=== PATIENT | female | born 2000 | race Asian ===

== ENCOUNTER 2024-04-13 15:30 | Inpatient (IN) | payer OTHER, SELFPAY ==
--- NOTE | ~2024-04-13 | XR_ITS ---
EXAMINATION: XR CHEST CLINICAL INFORMATION: elevated WBC r/o pneumonia COMPARISON: None available. TECHNIQUE: 2 views of the chest were obtained. FINDINGS: The lungs are clear. The cardiomediastinal silhouette is normal in size. There is no pleural effusion or pneumothorax. No acute osseous abnormality. XR/XR chest 2V IMPRESSION: No acute cardiopulmonary findings. Electronically signed by: Alexandru Livingston MD 04/13/2024 08:59 PM [facility]
--- NOTE | ~2024-04-13 | US_ITS ---
EXAMINATION: US PELVIS CLINICAL INFORMATION: Right lower quadrant pain. 4 cm left adnexal cyst noted on CT abdomen pelvis 04/13/2024. COMPARISON: CT abdomen pelvis 04/13/2024 TECHNIQUE: Transabdominal grayscale, color and spectral Doppler ultrasonography. FINDINGS: Uterus: The uterus measures 7.2 cm x 3.4 cm x 5.6 cm and is anteverted. The endometrial echo complex measures approximately 10 mm in width. No endometrial cavity fluid collections or myometrial lesions noted. The right ovary measures 4.4 cm x 2.19 x 2.8 cm and contains a single 2.0 cm rounded anechoic benign-appearing simple cyst. A normal low resistive mixed arterial and venous spectral wave form is noted within the right ovary. The right ovary is demonstrates normal color sonographic appearance. The left ovary measures 5.6 cm x 4.5 cm x 4.7 cm. A ovoid anechoic focus measuring 4.0 cm x 3.3 cm x 4.2 cm is present in the left ovary. Left ovary demonstrates normal color Doppler interrogation. A normal low resistive venous waveform is noted on spectral interrogation of the left ovary. Trace anechoic free intraperitoneal fluid is present in the pelvic cul-de-sac. US/US pelvic complete IMPRESSION: *Single 4.0 cm x 3.3 cm x 4.2 cm ovoid unilocular cyst within the left ovary. Findings are overwhelmingly likely to represent a benign functional cyst. No followup imaging recommended. The left ovary is otherwise normal in appearance. The left ovary demonstrates a normal low resistive venous waveform. No evidence of left ovarian torsion. *Normal appearance of the uterus and right ovary. Electronically signed by: French Saini MD 04/14/2024 03:20 AM [facility]
--- NOTE | ~2024-04-13 | CT_ITS ---
EXAMINATION: CT ABDOMEN AND PELVIS WITH CONTRAST CLINICAL INFORMATION: Right lower quadrant pain COMPARISON: None available. TECHNIQUE: Multidetector volumetric images were obtained from the superior aspect of the liver through the pubic symphysis following administration 85 mL of Omnipaque 350 intravenous contrast. Sagittal and coronal reformatted images were obtained on the technologist's workstation. Oral contrast: No This CT examination was performed using dose optimization techniques as appropriate, variously including the following: *Automated exposure control *Adjustment of mA and/or kV according to patient size (this includes techniques or standardized protocols for targeted exams where dose is matched to indication/reason for exam; i.e. extremities or head) *Use of iterative reconstruction technique DLP: 509 mGy-cm FINDINGS: LUNG BASES: The visualized lung bases are unremarkable. LIVER, GALLBLADDER, AND BILIARY TREE: 1.1 cm hypodense lesion posterior right lobe of liver, segment 7. This has benign features of sharp margination. Density measurement 57 Hounsfield units. No intrahepatic duct dilatation. The gallbladder is unremarkable with no evidence of radiopaque gallstones, gallbladder wall thickening, or obvious pericholecystic inflammatory changes. PANCREAS: Unremarkable. SPLEEN: Unremarkable. ADRENAL GLANDS: Unremarkable. KIDNEYS AND URETERS: The kidneys are normal in size, shape, and attenuation. No hydronephrosis, hydroureter, or calculi seen. No perinephric stranding. BLADDER: Unremarkable. GASTROINTESTINAL TRACT: The small and large bowel are unremarkable. The appendix is nonvisualized. Subtle stranding and trace fluid in the right lower quadrant mesentery adjacent to the cecum. Appendicitis cannot be excluded. There is no abscess. ABDOMINAL WALL: No significant hernia is appreciated. LYMPH NODES: Normal. VASCULAR: Unremarkable. PELVIC VISCERA: Uterus is anteverted. Left adnexal cystic lesion measuring 4 cm. Findings are overwhelmingly likely to represent a benign functional cyst. No followup imaging recommended. Right adnexal follicle measuring 1.6 cm. OSSEOUS STRUCTURES: No acute osseous abnormality. CT/CT abdomen pelvis w IV con IMPRESSION: 1. The appendix is nonvisualized. Subtle stranding and trace fluid in the right lower quadrant mesentery adjacent to the cecum. Appendicitis cannot be excluded. There is no abscess. 2. 1.1 cm hypodense lesion posterior right lobe of liver, segment 7. In a patient of this age without history of malignancy no further follow-up imaging would be recommended. 3. Left adnexal cystic lesion measuring 4 cm. Findings are overwhelmingly likely to represent a benign functional cyst. No followup imaging recommended. Fleischner guidelines were followed. Electronically signed by: Skyler Vallejo MD 04/13/2024 10:46 PM [facility]
[2024-04-13 16:41] VITALS: BP 137/91; PULSE 118; RESP 20; TEMP 36.7; O2SAT 100; BMI 27.5
--- NOTE | 2024-04-13 16:42 | ED.GENADULT ---
HPI - General Adult General Chief complaint: Dizziness Stated complaint: passed out at school/lower abd pain Time Seen by Provider: 04/13/24 20:43 Source: patient Mode of arrival: ambulatory Limitations: no limitations History of Present Illness ED Provider: ortega GARCIA narrative: Patient has was healthy had lower abdominal cramps when she went to the bathroom earlier today came back was sitting in the class when had more pain and she passed out during the day patient has continued to have lower abdominal pain vomited once feels hungry but pain is more localized in suprapubic and right lower abdomen gets worse on ambulation on arrival here patient WBC count was 20,000 no history of ovarian cyst in the past Related Data Allergies Allergy/AdvReac Type Severity Reaction Status Date / Time No Known Allergies Allergy Verified 04/13/24 16:45 Review of Systems Review of Systems: Yes all other systems are reviewed and are negative [facility] Social History Social History Advance Directives: No Advance Directives Information Provided: No Physical Exam ED Vital Signs: Vital Signs - 24 hr 04/13/24 16:41 04/13/24 19:59 04/14/24 00:00 Temperature 98.1 F 99.0 F 98.3 F Pulse Rate 118 H 101 H 83 Respiratory Rate 20 22 H 18 Blood Pressure 137/91 H 125/75 105/54 L Pulse Oximetry 100 97 97 Oxygen Delivery Method Room Air Room Air Room Air 04/14/24 00:43 Temperature Pulse Rate 97 Respiratory Rate 18 Blood Pressure 113/70 Pulse Oximetry 97 Oxygen Delivery Method BMI result Body Mass Index 27.5 Appearance: Alert. Oriented X3. No acute distress. Eyes: No pallor or icterus ENT: Pharynx normal. Oral Mucosa moist Neck: Normal inspection. Neck supple. CVS: Normal heart rate and rhythm. Pulses normal. Respiratory: No respiratory distress. Equal air entry bilateral, no wheezing/rales/rhonchi Abdomen: Soft and tenderness in right lower quadrant with guarding no rebound tenderness. Bowel sounds are present, no mass palpable, no CVA tenderness Skin: Skin warm and dry. Normal skin color. Normal skin turgor. Extremities: No lower extremity edema. No calf tenderness Neuro: Oriented X 3. Course Course Course Narrative: This is an RME: Additional HPI, ROS, PE not included below will be deferred to primary provider. RME assessment and note performed by: Yolanda Galarza PA-C This is [id number] who presents to the emergency department with complaints of suprapubic pain and two syncopal episodes. Pt reports that she voided while at school, and went back to class. Upon going back to class she had a syncopal episode. She went to school health services and had an EKG. She went hope and felt faint again. Patient reports that she has had suprapubic abdominal pain. She reports that she is not sexually active and denies chance of . No urinary symptoms. She is not on OCPs Plan: Labs, EKG, UA further ER eval needed. Medications Administered Generic Name Dose Route Start Last Admin Trade Name Freq PRN Reason Stop Dose Admin Lactated Ringer's 1,000 mls @ 100 mls/hr 04/14/24 01:15 04/14/24 01:26 Lr IVCONT 100 mls/hr .Q10H DANYA Administration Discontinued Medications Generic Name Dose Route Start Last Admin Trade Name Freq PRN Reason Stop Dose Admin Sodium Chloride 1,000 mls @ 999 mls/hr 04/13/24 20:57 04/13/24 23:16 Ns IV 04/13/24 21:57 Infused .Q1H1M ONE Infusion Piperacillin Sod/Tazobactam 50 mls @ 100 mls/hr 04/13/24 23:15 04/13/24 23:57 Sod 3.375 gm/ Sodium Chloride IV 04/13/24 23:44 Infused ONCE ONE Infusion Iohexol 85 ml 04/13/24 22:02 04/13/24 22:02 Iohexol 350 Mg/Ml 100 Ml Infus..Btl IV 04/13/24 22:03 85 ml ONCE ONE Administration Medical Decision Making Medical Decision Making [facility] Narrative: Patient has acute onset of lower abdominal pain near-syncope episode likely vasovagal CT scan could not see the appendix but has some inflammation of the right lower quadrant will admit patient to surgery for possible appendicitis Dr. Vela will see and admit the patient Differential Diagnosis Differential Diagnoses: The differential diagnosis associated with the presentation includes Appendicitis/ovarian cyst/hemorrhagic ovarian cyst Admission/Observation Consideration of admission/observation: Escalation of care including admission/observation considered Lab Data [facility] Lab Attestation statement: I reviewed the patient's lab results. 04/13/24 17:27 04/13/24 17:27 Labs: Lab Results 04/13/24 04/13/24 04/13/24 Range/Units 17:27 17:40 19:44 WBC 20.1 H (4.8-10.8) X10*3/uL RBC 5.05 (4.20-5.50) X10*6/uL Hgb 10.3 L (12.0-16.0) g/dl Hct 34.0 L (37.0-47.0) % MCV 67.3 L (80.0-98.0) fL MCH 20.4 L (27.0-33.0) pg MCHC 30.3 L (31.0-35.0) g/dl RDW 16.7 H (11.0-16.0) % Plt Count 433 H (160-400) X10*3/uL MPV 10.2 (9.4-12.3) fL Immature Gran % (Auto) 0.5 H (0.0-0.4) % Neut % (Auto) 74.8 H (45-73) % Lymph % (Auto) 18.0 L (20-40) % Henry % (Auto) 5.1 (2-11) % Eos % (Auto) 1.3 (0-4) % Baso % (Auto) 0.3 (0-2) % Lymph # (Auto) 3.6 (1.2-4.9) X10*3/uL Henry # (Auto) 1.0 (0.1-1.2) X10*3/uL Eos # (Auto) 0.3 (0.0-0.4) X10*3/uL Baso # (Auto) 0.1 (0.0-0.2) X10*3/uL Abs Immat Gran (auto) 0.10 H (0.00-0.03) X10*3/uL Absolute Neuts (auto) 15.0 H (2.0-8.3) x10*3/uL Absolute Nucleated RBC 0.000 (0.0-0.012) X10*3/uL Nucleated RBC % (auto) 0.0 (0.0-0.2) /100WBC PT 14.3 H (10.9-12.4) SEC INR 1.2 H (0.9-1.1) Sodium 138 (135-145) mmol/L Potassium 3.6 (3.3-5.1) mmol/L Chloride 104 (96-108) mmol/L Carbon Dioxide 22 (22-29) mmol/L Anion Gap 16 (12-20) BUN 10 (9-16) mg/dL Creatinine 0.68 (0.5-1.4) mg/dL Estim Creat Clear Calc 127.8 Estimated GFR > 60 Random Glucose 91 (60-115) mg/dL Lactic Acid 0.9 (0.5-2.0) mmol/L Calcium 9.0 (8.4-10.2) mg/dL Magnesium 2.0 (1.6-2.6) mg/dL Total Bilirubin 0.6 (0.0-1.0) mg/dL Direct Bilirubin 0.2 (0.0-0.5) mg/dL AST 25 (5-31) U/L ALT 17 (0-31) U/L Alkaline Phosphatase 92 (39-117) U/L Troponin I High Sens < 2.7 (<3.5-17.0) ng/L Total Protein 8.2 H (6.5-8.0) g/dL Albumin 4.3 (3.5-5.0) g/dL Lipase 21 (8-78) U/L Beta HCG, Quant < 2 mIU/mL Urine Color Yellow Urine Appearance Clear Urine pH 6.5 (5.0-9.0) Ur Specific Burns 1.020 (1.005-1.025) Urine Protein Negative (Neg-Trace) mg/dL Urine Glucose (UA) Negative (Negative) mg/dL Urine Ketones 15 (Negative) mg/dL Urine Blood Negative (Negative) Urine Nitrite Negative (Negative) Ur Leukocyte Esterase Negative (Negative) Influenza Type A (PCR) NEGATIVE (Negative) Influenza Type B (PCR) NEGATIVE (Negative) RSV RNA Qual (PCR) NEGATIVE (Negative) SARS-CoV-2 RNA (RT-PCR) NEGATIVE (Negative) Independent Interpretation I performed an independent interpretation of an: EKG and CT Scan Interpretation: Sinus tachycardia ventricular rate 107 beats per minute normal interval normal axis no acute STT wave changes no acute ischemia Radiology Impression Discussion of test interpretation with radiology: I have reviewed the radiologist's reading. Radiologist Impression: [id number] [place] [address] CT Scan Report Signed Patient: Hermila Anne MR#: [id number] : 2000 Acct:[id number] Age/Sex: 23 / F ADM Date: 04/13/24 Loc: HO.ED Attending Dr: Ordering Physician: Luis Jacobo MD Date of Service: 04/13/24 Procedure(s): CT abdomen pelvis w IV con Accession Number(s): [id number] cc: Physician,None ; Luis Jacobo MD~ EXAMINATION: CT ABDOMEN AND PELVIS WITH CONTRAST CLINICAL INFORMATION: Right lower quadrant pain COMPARISON: None available. TECHNIQUE: Multidetector volumetric images were obtained from the superior aspect of the liver through the pubic symphysis following administration 85 mL of Omnipaque 350 intravenous contrast. Sagittal and coronal reformatted images were obtained on the technologist's workstation. Oral contrast: No This CT examination was performed using dose optimization techniques as appropriate, variously including the following: *Automated exposure control *Adjustment of mA and/or kV according to patient size (this includes techniques or standardized protocols for targeted exams where dose is matched to indication/reason for exam; i.e. extremities or head) *Use of iterative reconstruction technique DLP: 509 mGy-cm FINDINGS: LUNG BASES: The visualized lung bases are unremarkable. LIVER, GALLBLADDER, AND BILIARY TREE: 1.1 cm hypodense lesion posterior right lobe of liver, segment 7. This has benign features of sharp margination. Density measurement 57 Hounsfield units. No intrahepatic duct dilatation. The gallbladder is unremarkable with no evidence of radiopaque gallstones, gallbladder wall thickening, or obvious pericholecystic inflammatory changes. PANCREAS: Unremarkable. SPLEEN: Unremarkable. ADRENAL GLANDS: Unremarkable. KIDNEYS AND URETERS: The kidneys are normal in size, shape, and attenuation. No hydronephrosis, hydroureter, or calculi seen. No perinephric stranding. BLADDER: Unremarkable. GASTROINTESTINAL TRACT: The small and large bowel are unremarkable. The appendix is nonvisualized. Subtle stranding and trace fluid in the right lower quadrant mesentery adjacent to the cecum. Appendicitis cannot be excluded. There is no abscess. ABDOMINAL WALL: No significant hernia is appreciated. LYMPH NODES: Normal. VASCULAR: Unremarkable. PELVIC VISCERA: Uterus is anteverted. Left adnexal cystic lesion measuring 4 cm. Findings are overwhelmingly likely to represent a benign functional cyst. No followup imaging recommended. Right adnexal follicle measuring 1.6 cm. OSSEOUS STRUCTURES: No acute osseous abnormality. CT/CT abdomen pelvis w IV con IMPRESSION: 1. The appendix is nonvisualized. Subtle stranding and trace fluid in the right lower quadrant mesentery adjacent to the cecum. Appendicitis cannot be excluded. There is no abscess. 2. 1.1 cm hypodense lesion posterior right lobe of liver, segment 7. In a patient of this age without history of malignancy no further follow-up imaging would be recommended. 3. Left adnexal cystic lesion measuring 4 cm. Findings are overwhelmingly likely to represent a benign functional cyst. No followup imaging recommended. Fleischner guidelines were followed. Electronically signed by: Skyler Vallejo MD 04/13/2024 10:46 PM [facility] Discharge Plan Discharge Clinical Impression: Acute appendicitis, Ovarian cyst, Vasovagal syncopes Patient Disposition: Admitted As Inpatient
--- NOTE | 2024-04-13 16:54 | ECG_ITS ---
Test Reason : syncope Blood Pressure : / mmHG Vent. Rate : 107 BPM Atrial Rate : 107 BPM P-R Int : 122 ms QRS Dur : 078 ms QT Int : 330 ms P-R-T Axes : 069 072 047 degrees QTc Int : 440 ms Sinus tachycardia Otherwise normal ECG No previous ECGs available Referred By: Luis Jacobo Electronically Signed By:TRISTIAN URENA MD
[2024-04-13 17:35] LABS: MANUAL DIFF FLAG NO
[2024-04-13 17:42] LABS: INTERNATIONAL NORM RATIO 1.2 (0.9-1.1); Prothrombin Time 14.3 SEC (10.9-12.4)
[2024-04-13 17:44] LABS: Basophils Absolute Auto 0.1 X10*3/uL (0.0-0.2); Basophils Percent Auto 0.3 % (0-2); Eosinophils Absolute Auto 0.3 X10*3/uL (0.0-0.4); Eosinophils Percent Auto 1.3 % (0-4); Hemoglobin 10.3 g/dl (12.0-16.0); Imm Gran Pct Auto 0.5 % (0.0-0.4); Lymphocytes Absolute Auto 3.6 X10*3/uL (1.2-4.9); Mean Corpuscular HGB Conc 30.3 g/dl (31.0-35.0); Mean Corpuscular Hemoglobin 20.4 pg (27.0-33.0); Mean Corpuscular Volume 67.3 fL (80.0-98.0); Mean Platelet Volume 10.2 fL (9.4-12.3); Monocytes Percent Auto 5.1 % (2-11); Neutrophils Percent Auto 74.8 % (45-73); Platelet Count 433 X10*3/uL (160-400); Red Blood Count 5.05 X10*6/uL (4.20-5.50); Red Cell Distribution Width 16.7 % (11.0-16.0); White Blood Count 20.1 X10*3/uL (4.8-10.8)
[2024-04-13 17:47] LABS: Appearance Urine Clear; Color Urine Yellow; Glucose Urine UA Negative (Negative); Leukocyte Esterase Urine Negative (Negative); Nitrite Urine Negative (Negative); PH 6.5 (5.0-9.0); Urine Blood Negative (Negative); Urine Ketones 15 mg/dL (Negative); Urine Protein Negative (Neg-Trace)
[2024-04-13 17:53] LABS: Alanine Aminotransferase 17 U/L (0-31); Albumin Level 4.3 g/dL (3.5-5.0); Alkaline Phosphatase 92 U/L (39-117); Anion Gap 16 (12-20); Aspartate Amino Transferase 25 U/L (5-31); Bilirubin Direct 0.2 mg/dL (0.0-0.5); Bilirubin Total 0.6 mg/dL (0.0-1.0); Blood Urea Nitrogen 10 mg/dL (9-16); Carbon Dioxide 22 mmol/L (22-29); Chloride 104 mmol/L (96-108); Creatinine Clr Calc Pharmacy 127.8; Estimated Glomerular Filt Rate > 60; Glucose Random 91 mg/dL (60-115); Lipase 21 U/L (8-78); Potassium 3.6 mmol/L (3.3-5.1); Sodium 138 mmol/L (135-145); Total Protein 8.2 g/dL (6.5-8.0)
[2024-04-13 18:00] LABS: Troponin-I High Sensitivity < 2.7 ng/L (<3.5-17.0)
[2024-04-13 18:14] LABS: Influenza A PCR NEGATIVE (Negative); Influenza B PCR NEGATIVE (Negative); Resp Syncy Virus RNA Qual PCR NEGATIVE (Negative); SARS COV2 PCR INHOUSE NEGATIVE (Negative)
[2024-04-13 19:59] VITALS: BP 125/75; PULSE 101; RESP 22; TEMP 37.2; O2SAT 97
[2024-04-13 20:05] LABS: Lactic Acid 0.9 mmol/L (0.5-2.0)
[2024-04-13 20:17] LABS: HCG Quantitative < 2 mIU/mL
--- NOTE | 2024-04-13 20:29 | PC.NURSE ---
a&ox4. vss and up to date aside from being slightly tachycardic on the monitor tech - pt denies any chest pain/palpitations. pt presents to the ED s/p 2 witnessed syncopal episodes. pt verbalizes 1st episode occurred at school at approx. 11am this morning during class. -headstrike. -thinners. pt reports feeling dizzy/lightheaded prior to fall. only complaints is intermittent nonradiating lower abd pain. pt also endorsing dysuria, urinary urgency, frequency. denies any discharge/odor/fever/chills/n/v. 2nd syncopal episode occurred at home ALUMINUM POOL [employer]ST[employer]. 20gIV in the right AC - 2nd set of blood cultures obtained/sent to lab. pt on RA w/o difficulty - no sob/wob noted. respirations even/unlabored. family bedside for support. plan of care ongoing. call de la torre placed within reach.
[2024-04-13] MEDS: 0.9 % Sodium Chloride 1,000 ML 999 ML IV (21:16)
--- NOTE | 2024-04-13 21:16 | PC.NURSE ---
IVF administered per provider order. pt waiting to go to CT at this time.
[2024-04-13] MEDS: iohexoL 350 MG/ML 100 ML INFUS..BTL 85 ML IV (22:02)
[2024-04-13] MEDS: Piperacillin Sodium/Tazobactam 3.375 GM in 0.9 % Sodium Chloride 50 ML IV (23:23)
--- NOTE | 2024-04-13 23:24 | PC.NURSE ---
abx administered per provider order. pt pending admission at this time.
[2024-04-14] VITALS: BP 105/54; PULSE 83; RESP 18; TEMP 36.8; O2SAT 97
[2024-04-14 00:43] VITALS: BP 113/70; PULSE 97; RESP 18; O2SAT 97
--- NOTE | 2024-04-14 00:45 | MHC.EDTECH ---
Patient ambulated to the bathroom with a steady gait,vitals taken,belongings list completed,copy placed in chart,call de la torre in reach
[2024-04-14] MEDS: Lactated Ringers 1,000 ML 100 ML IVCONT (01:26)
--- NOTE | 2024-04-14 02:03 | PC.NURSE ---
pt to ultrasound at this time.
--- NOTE | 2024-04-14 03:01 | PC.NURSE ---
pt seen by hospitalist/aware of plan of care moving forward at this time. LR infusing @ 100 mls/hr into 20gIV in the right AC at this time. respirations remain even/unlabored. pt waiting for bed assignment at this time. plan of care ongoing. call de la torre placed within reach.
[2024-04-14 05:08] LABS: MANUAL DIFF FLAG NO
[2024-04-14 05:10] VITALS: BP 104/56; PULSE 76; RESP 18; O2SAT 97
[2024-04-14 05:10] LABS: Basophils Absolute Auto 0.1 X10*3/uL (0.0-0.2); Basophils Percent Auto 0.3 % (0-2); Eosinophils Absolute Auto 0.4 X10*3/uL (0.0-0.4); Eosinophils Percent Auto 2.3 % (0-4); Hematocrit 29.2 % (37.0-47.0); Hemoglobin 8.9 g/dl (12.0-16.0); Imm Gran Abs Auto 0.05 X10*3/uL (0.00-0.03); Imm Gran Pct Auto 0.3 % (0.0-0.4); Lymphocytes Absolute Auto 3.3 X10*3/uL (1.2-4.9); Lymphocytes Percent Auto 21.1 % (20-40); Mean Corpuscular HGB Conc 30.5 g/dl (31.0-35.0); Mean Corpuscular Hemoglobin 20.5 pg (27.0-33.0); Mean Corpuscular Volume 67.3 fL (80.0-98.0); Mean Platelet Volume 10.1 fL (9.4-12.3); Monocytes Absolute Auto 0.8 X10*3/uL (0.1-1.2); Monocytes Percent Auto 5.4 % (2-11); Neutrophils Percent Auto 70.6 % (45-73); Platelet Count 364 X10*3/uL (160-400); Red Blood Count 4.34 X10*6/uL (4.20-5.50); Red Cell Distribution Width 16.7 % (11.0-16.0); White Blood Count 15.5 X10*3/uL (4.8-10.8)
[2024-04-14 05:24] LABS: Anion Gap 12 (12-20); Blood Urea Nitrogen 9 mg/dL (9-16); Calcium 8.8 mg/dL (8.4-10.2); Carbon Dioxide 20 mmol/L (22-29); Chloride 110 mmol/L (96-108); Creatinine Clr Calc Pharmacy 124.1; Estimated Glomerular Filt Rate > 60; Glucose Random 89 mg/dL (60-115); Potassium 3.9 mmol/L (3.3-5.1); Sodium 138 mmol/L (135-145)
[2024-04-14 05:34] VITALS: BP 106/63; PULSE 82; RESP 18; TEMP 36.8; O2SAT 97
--- NOTE | 2024-04-14 05:50 | HO.PM.IMCN ---
History of Present Illness Data of Consult Service Date: 04/14/24 Requesting physician: Stuart Alexander Primary Care Provider: None Physician HPI Reason for consult: Syncope Hermila Anne is a 23 years old woman with no significant past medical history presents to the emergency department after she had 2 events of LOC followed by loss of consciousness yesterday. She stated that she used the bathroom at school and started to experience pelvic pain after urinating. Upon returning to her classroom and sitting down she felt dizzy and lost consciousness. It seems like she recovered pretty quickly and experienced some ringing to her ears. Denied associated chest pain, shortness on breath or palpitations. She described the pain as a pressure radiating to the right lower quadrant. Intensity has been fluctuating between 4-7/10. She did report nausea and vomiting. She did not report fever, chills or diarrhea. Her last menstrual period was about 3 weeks ago. Denied tobacco smoking, alcohol abuse or illicit drug use. In the ED, she was found to have normal vital signs. Blood workup leukocytosis of 20.1, hemoglobin 10.3 and platelets 433. There are no electrolyte imbalances. Renal function, lipase and LFTs are normal. test is negative. Urinalysis showed no hematuria or finding consistent with UTI. COVID-19, RSV and influenza are negative. CXR showed no acute cardiopulmonary disease. Abdominal pelvis CT scan showed unable to exclude appendicitis without abscesses, liver hypodense lesion and left adnexal cystic lesion. Pelvic ultrasound showed left ovary cyst and no ovarian torsions. ED tx: NS 1 L bolus, Zosyn 3.375 g IV Review of Systems Review of Systems: All 12 systems were reviewed and normal except as noted in HPI. [facility] Social History Patient Tobacco Use Status: Never used Tobacco Smoked in Last 30 Days: No Use of substances other than those prescribed or required for medical reasons: No Advance Directives: No Advance Directives Information Provided: No Nutrition Risks: No Nutritional Risk Patient : No Meds Allergies Allergy/AdvReac Type Severity Reaction Status Date / Time No Known Allergies Allergy Verified 04/13/24 16:45 Active Medications: Current Medications Acetaminophen (Acetaminophen 325 Mg Tablet) 650 mg PO Q6H PRN PRN Reason: Pain, Mild (Pain Scale 1-3), fever or headache Calcium Carbonate (Calcium Carbonate 750 Mg Tab.Chew) 750 mg PO Q4H PRN PRN Reason: Heartburn Lactated Ringer's (Lr) 1,000 mls @ 100 mls/hr IVCONT .Q10H DANYA Last Admin: 04/14/24 01:26 Dose: 100 mls/hr Ketorolac Tromethamine (Ketorolac Tromethamine 15 Mg/Ml Vial) 15 mg IVPUSH Q6H PRN PRN Reason: Pain, Moderate(Pain Scale 4-6) Stop: 04/19/24 01:41 Melatonin (Melatonin 3 Mg Tablet) 6 mg PO BEDTIME PRN PRN Reason: Insomnia Ondansetron HCl (Ondansetron Hcl 4 Mg/2 Ml Vial) 4 mg IVPUSH Q8H PRN PRN Reason: Nausea and Vomiting Sodium Chloride (0.9 % Sodium Chloride Flush 3 Ml Syringe) 3 ml IVFLUSH QSHIFT DANYA Physical Exam Vital Signs and Narrative: Vital Signs: Last Vital Signs Temp 98.3 F 04/14/24 05:34 Pulse 82 04/14/24 05:34 Resp 18 04/14/24 05:34 BP 106/63 04/14/24 05:34 Pulse Ox 97 04/14/24 05:34 O2 Del Method Room Air 04/14/24 05:34 BMI result Body Mass Index 27.5 Constitutional - Awake and Alert, No apparent distress Eyes - PERRLA, EOMI Cardiovascular - S1S2, RRR, No edema Respiratory - Normal lung expansion, Normal respiratory effort, No respiratory distress, CTA bilaterally Gastrointestinal - NT / ND; +BS; No rebound or guarding Extremities - no calf tenderness bilaterally, no swelling Musculoskeletal - Normal inspection, normal ROM Skin - Warm/Dry Neurological - Alert & oriented x3, CN III-XII in tact, 5/5 strength BUE and BLE Psychological - Appropriate affect Results Labs 04/14/24 04:31 04/14/24 04:31 Labs: Laboratory Results - last 24 hr 04/13/24 04/13/24 04/13/24 17:27 17:40 19:44 MCV 67.3 L MCH 20.4 L MCHC 30.3 L RDW 16.7 H Plt Count 433 H MPV 10.2 Immature Gran % (Auto) 0.5 H Neut % (Auto) 74.8 H Lymph % (Auto) 18.0 L [place] % (Auto) 5.1 Eos % (Auto) 1.3 Baso % (Auto) 0.3 Lymph # (Auto) 3.6 [place] # (Auto) 1.0 Eos # (Auto) 0.3 Baso # (Auto) 0.1 Abs Immat Gran (auto) 0.10 H Absolute Neuts (auto) 15.0 H Absolute Nucleated RBC 0.000 Nucleated RBC % (auto) 0.0 PT 14.3 H INR 1.2 H Anion Gap 16 Estim Creat Clear Calc 127.8 Estimated GFR > 60 Random Glucose 91 Lactic Acid 0.9 Calcium 9.0 Magnesium 2.0 Total Bilirubin 0.6 Direct Bilirubin 0.2 AST 25 ALT 17 Alkaline Phosphatase 92 Troponin I High Sens < 2.7 Total Protein 8.2 H Albumin 4.3 Lipase 21 Beta HCG, Quant < 2 Urine Color Yellow Urine Appearance Clear Urine pH 6.5 Ur Specific [place] 1.020 Urine Protein Negative Urine Glucose (UA) Negative Urine Ketones 15 Urine Blood Negative Urine Nitrite Negative Ur Leukocyte Esterase Negative Influenza Type A (PCR) NEGATIVE Influenza Type B (PCR) NEGATIVE RSV RNA Qual (PCR) NEGATIVE SARS-CoV-2 RNA (RT-PCR) NEGATIVE 04/14/24 04:31 MCV 67.3 L MCH 20.5 L MCHC 30.5 L RDW 16.7 H Plt Count 364 MPV 10.1 Immature Gran % (Auto) 0.3 Neut % (Auto) 70.6 Lymph % (Auto) 21.1 [place] % (Auto) 5.4 Eos % (Auto) 2.3 Baso % (Auto) 0.3 Lymph # (Auto) 3.3 [place] # (Auto) 0.8 Eos # (Auto) 0.4 Baso # (Auto) 0.1 Abs Immat Gran (auto) 0.05 H Absolute Neuts (auto) 11.0 H Absolute Nucleated RBC 0.000 Nucleated RBC % (auto) 0.0 PT INR Anion Gap 12 Estim Creat Clear Calc 124.1 Estimated GFR > 60 Random Glucose 89 Lactic Acid Calcium 8.8 Magnesium Total Bilirubin Direct Bilirubin AST ALT Alkaline Phosphatase Troponin I High Sens Total Protein Albumin Lipase Beta HCG, Quant Urine Color Urine Appearance Urine pH Ur Specific [place] Urine Protein Urine Glucose (UA) Urine Ketones Urine Blood Urine Nitrite Ur Leukocyte Esterase Influenza Type A (PCR) Influenza Type B (PCR) RSV RNA Qual (PCR) SARS-CoV-2 RNA (RT-PCR) Imaging Radiologist's Impressions: Impressions Chest X-Ray 04/13/24 20:00 IMPRESSION: No acute cardiopulmonary findings. Electronically signed by: Alexandru Livingston MD 04/13/2024 08:59 PM EST RP Abdomen/Pelvis CT 04/13/24 20:57 IMPRESSION: 1. The appendix is nonvisualized. Subtle stranding and trace fluid in the right lower quadrant mesentery adjacent to the cecum. Appendicitis cannot be excluded. There is no abscess. 2. 1.1 cm hypodense lesion posterior right lobe of liver, segment 7. In a patient of this age without history of malignancy no further follow-up imaging would be recommended. 3. Left adnexal cystic lesion measuring 4 cm. Findings are overwhelmingly likely to represent a benign functional cyst. No followup imaging recommended. Fleischner guidelines were followed. Electronically signed by: Skyler Vallejo MD 04/13/2024 10:46 PM EST RP Pelvis Ultrasound 04/14/24 01:50 IMPRESSION: *Single 4.0 cm x 3.3 cm x 4.2 cm ovoid unilocular cyst within the left ovary. Findings are overwhelmingly likely to represent a benign functional cyst. No followup imaging recommended. The left ovary is otherwise normal in appearance. The left ovary demonstrates a normal low resistive venous waveform. No evidence of left ovarian torsion. *Normal appearance of the uterus and right ovary. Electronically signed by: French Saini MD 04/14/2024 03:20 AM EST RP Assessment and Plan (1) Vasovagal syncopes: Status: Acute (2) Abdominal pain: Qualifiers: Abdominal location: right lower quadrant Qualified Code(s): R10.31 - Right lower quadrant pain Status: Acute Plan Hermila Anne is a 23 y/o woman admitted with: Pelvic abdominal pain radiating to RLQ. Appendicitis? Will defer treatment to surgery service. Loss of consciousness --> vasovagal syncope secondary to pain, post-micturition. No further interventions recommended. Microcytic anemia, likely underlying iron deficiency. Anemia workup.
[2024-04-14 06:19] LABS: Immature Retic Fraction 17.2 % (3.0-15.9); Reticulocyte Percent 1.2 % (0.5-1.8); Reticulocytes Absolute 0.051 X10*6/uL (0.026-0.095)
[2024-04-14 06:34] LABS: Iron 40 mcg/dL (30-160); Percent Iron Saturation 12 % (15-50); Total Iron Binding Capacity 325 mcg/dL (228-428); Unsaturated Iron Binding 285 ug/dL
[2024-04-14 06:47] LABS: Ferritin 13 ng/mL (10-122)
--- NOTE | 2024-04-14 07:48 | PC.NURSE ---
pt speaking w/ dr. sheikh at this time - plan of care ongoing.
--- NOTE | 2024-04-14 09:10 | PHA.MEDREC ---
Pharmacy Consult ? Medication Reconciliation Pharmacy has completed the medication reconciliation. Spoke to patient, she is not taking any medication.
[2024-04-14 09:21] VITALS: BP 100/62; PULSE 89; RESP 18; TEMP 36.8; O2SAT 100
[2024-04-14 09:52] LABS: Folate 8.3 ng/mL (> or = 4.0); Vitamin B12 479 pg/mL (200-900)
--- NOTE | 2024-04-14 10:03 | PM.HPGS ---
History of Present Illness History of Present Illness Date of Service: 04/14/24 <Milagro Putnam PA-C - Last Filed: 04/14/24 10:23> 04/14/24 <Floyd Valle MD - Last Filed: 04/14/24 10:23> Chief complaint: Abdo Pain <Milagro Putnam PA-C - Last Filed: 04/14/24 10:23> Narrative: Hermila Anne is a 23 year old female with no known PMH who presented to the ED with complaints of pelvic pain, syncopal episodes. She reports she was in her usual state of health until yesterday morning. She reports she used the bathroom at school and developed right lower abd pain/pelvic pain. She then felt dizzy and woke up on the floor. Work up in the ED included CBC, BMP, LFTs, troponin, UA which was significant for a leukocytosis of 20.1. CT scan abd/pelvis was obtained which showed left adnexal cyst. Appendix was not visualized, no fluid collections or significant surrounding inflammatory changes in the RLQ on my review. Pelvic US confirmed ovoid unilocular cyst within the left ovary, no evidence of ovarian torsion. Serum negative. This morning she feels significantly improved. She denies any abdominal pain, nausea or vomiting, fevers, chills. She feels hungry. <Milagro Putnam PA-C - Last Filed: 04/14/24 10:23> Review of Systems Constitutional: Constitutional: Denies chills and Denies fever(s) <Milagro Putnam PA-C - Last Filed: 04/14/24 10:23> ENT: Reports dizziness (resolved) <Milagro Putnam PA-C - Last Filed: 04/14/24 10:23> Cardiovascular: Cardiovascular: Denies chest pain, Denies palpitations and Denies dyspnea <Milagro Putnam PA-C - Last Filed: 04/14/24 10:23> Respiratory: Respiratory: Denies dyspnea <Milagro Putnam PA-C - Last Filed: 04/14/24 10:23> Gastrointestinal: Gastrointestinal: Reports as per HPI and Denies diarrhea <DIXON Mcfadden Last Filed: 04/14/24 10:23> Genitourinary: Genitourinary: Denies hematuria, Denies dysuria, Denies urinary hesitancy and Denies vaginal discharge <DIXON Mcfadden Last Filed: 04/14/24 10:23> Integumentary/Breasts: Skin/Breast: Denies rash and Denies jaundice <DIXON Mcfadden Last Filed: 04/14/24 10:23> Neurologic: Reports dizziness (resolved) <DIXON Mcfadden Last Filed: 04/14/24 10:23> Endocrine: Endocrine: Denies palpitations <DIXON Mcfadden Last Filed: 04/14/24 10:23> [facility] Social History Social History: Social History Patient Tobacco Use Status: Never used Tobacco Smoked in Last 30 Days: No Use of substances other than those prescribed or required for medical reasons: No Advance Directives: No Advance Directives Information Provided: No Nutrition Risks: No Nutritional Risk Patient : No <DIXON Mcfadden Last Filed: 04/14/24 10:23> Meds Allergies/Adverse reactions: Allergies Allergy/AdvReac Type Severity Reaction Status Date / Time No Known Allergies Allergy Verified 04/13/24 16:45 <DIXON Mcfadden Last Filed: 04/14/24 10:23> Active Medications: Current Medications Acetaminophen (Acetaminophen 325 Mg Tablet) 650 mg PO Q6H PRN PRN Reason: Pain, Mild (Pain Scale 1-3), fever or headache Calcium Carbonate (Calcium Carbonate 750 Mg Tab.Chew) 750 mg PO Q4H PRN PRN Reason: Heartburn Lactated Ringer's (Lr) 1,000 mls @ 100 mls/hr IVCONT .Q10H DANYA Last Admin: 04/14/24 01:26 Dose: 100 mls/hr Ketorolac Tromethamine (Ketorolac Tromethamine 15 Mg/Ml Vial) 15 mg IVPUSH Q6H PRN PRN Reason: Pain, Moderate(Pain Scale 4-6) Stop: 04/19/24 01:41 Melatonin (Melatonin 3 Mg Tablet) 6 mg PO BEDTIME PRN PRN Reason: Insomnia Ondansetron HCl (Ondansetron Hcl 4 Mg/2 Ml Vial) 4 mg IVPUSH Q8H PRN PRN Reason: Nausea and Vomiting Sodium Chloride (0.9 % Sodium Chloride Flush 3 Ml Syringe) [address] [facility] Last Admin: 04/14/24 07:12 Dose: Not Given <DIXON Mcfadden Last Filed: 04/14/24 10:23> Home medications: Home Medications ?Medication ?Instructions ?Recorded ?Confirmed ?Last Taken ?Type No Known Home Meds 04/14/24 04/14/24 Unknown History <DIXON Mcfadden Last Filed: 04/14/24 10:23> Physical Exam Vital Signs: Vital Signs: Last Vital Signs Temp 98.3 F 04/14/24 09:21 Pulse 89 04/14/24 09:21 Resp 18 04/14/24 09:21 BP 100/62 04/14/24 09:21 Pulse Ox 100 04/14/24 09:21 O2 Del Method Room Air 04/14/24 09:21 BMI result Body Mass Index 27.5 <DIXON Mcfadden Last Filed: 04/14/24 10:23> Const: General: comfortable (working on computer on stretcher ), no acute distress and alert <DIXON Mcfadden Last Filed: 04/14/24 10:23> Orientation/consciousness: patient oriented x3 <DIXON Mcfadden Last Filed: 04/14/24 10:23> Resp: Effort & Inspection: normal respiratory effort <DIXON Mcfadden Last Filed: 04/14/24 10:23> GI: Inspection: Yes normal to inspection, No distended and No scar <DIXON Mcfadden Last Filed: 04/14/24 10:23> Palpation (GI): Soft to palpation, Tenderness to palpation present (GI) (very mild suprapubic tenderness) not at McBurney's point, with no rebound tenderness and Rovsing's sign negative and no guarding <DIXON Mcfadden Last Filed: 04/14/24 10:23> Percussion: Yes normal to percussion <DIXON Mcfadden Last Filed: 04/14/24 10:23> Skin: General skin exam: no rashes or lesions noted <DIXON Mcfadden Last Filed: 04/14/24 10:23> Neuro: General: patient oriented x3 and moves all extremities <DIXON Mcfadden Last Filed: 04/14/24 10:23> Results Results Labs: Short CBC 04/13/24 04/14/24 Range/Units 17:27 04:31 WBC 20.1 H 15.5 H (4.8-10.8) X10*3/uL Hgb 10.3 L 8.9 L (12.0-16.0) g/dl Hct 34.0 L 29.2 L (37.0-47.0) % Plt Count 433 H 364 (160-400) X10*3/uL BMP 04/13/24 04/14/24 17:27 04:31 Sodium 138 138 Potassium 3.6 3.9 Chloride 104 110 H Carbon Dioxide 22 20 L BUN 10 9 Creatinine 0.68 0.70 Calcium 9.0 8.8 Liver Function 04/13/24 Range/Units 17:27 Total Bilirubin 0.6 (0.0-1.0) mg/dL Direct Bilirubin 0.2 (0.0-0.5) mg/dL AST 25 (5-31) U/L ALT 17 (0-31) U/L Alkaline Phosphatase 92 (39-117) U/L Albumin 4.3 (3.5-5.0) g/dL Urine 04/13/24 Range/Units 17:40 Urine Color Yellow Urine Appearance Clear Urine pH 6.5 (5.0-9.0) Ur Specific [place] 1.020 (1.005-1.025) Urine Protein Negative (Neg-Trace) mg/dL Urine Glucose (UA) Negative (Negative) mg/dL <DIXON Mcfadden Last Filed: 04/14/24 10:23> Abdomen CT scan report/results: report reviewed and image reviewed <DIXON Mcfadden Last Filed: 04/14/24 10:23> Assessment and Plan (1) Abdominal pain: Qualifiers: Abdominal location: right lower quadrant Qualified Code(s): R10.31 - Right lower quadrant pain <Milagro Putnam PA-C - Last Filed: 04/14/24 10:23> Status: Acute <Milagro Putnam PA-C - Last Filed: 04/14/24 10:23> History reviewed Currently feels much better Still has some pain on the right pelvic area Looks well Abdomen is soft, benign, and minimal tenderness on the pelvic area Clinically not consistent with acute appendicitis We will start on diet and see how she does She is stating that she is ready to be discharged We will re-examine later on Seen and examined independently <Floyd Valle MD - Last Filed: 04/14/24 10:23> (2) Vasovagal syncopes: Status: Acute <Milagro Putnam PA-C - Last Filed: 04/14/24 10:23> 23 year old healthy female who presented to the ED following syncopal episode complaining of pelvic pain found to have leukocytosis. Appendix not visualized on CT scan but found to have large ovarian cyst. She was admitted for observation for concern of possible appendicitis however unlikely at this point given her presentation. She is nontoxic appearing and is comfortable without any abdominal symptoms currently and her abdomen is very benign. WBC has improved to 15. Will advance diet as tolerated. If tolerating and remains asymptomatic, possible dc to home later today or tomorrow. Will hold off on abx for now. Hospitalist consult was obtained for the syncopal episode which was thought vasovagal in nature secondary to pain and no further work up needed. <Milagro Putnam PA-C - Last Filed: 04/14/24 10:23> Quality Stroke Does the patient have a stroke diagnosis?: No <Milagro Putnam PA-C - Last Filed: 04/14/24 10:23> VTE Prior VTE?: No <Milagro Putnam PA-C - Last Filed: 04/14/24 10:23> VTE Risk Level:: Surgical - low <Milagro Putnam PA-C - Last Filed: 04/14/24 10:23> VTE Device Contraindication: N/A - Device Ordered <Milagro Putnam PA-C - Last Filed: 04/14/24 10:23> VTE Drug Contraindication: Treatment Not Indicated <Milagro Putnam PA-C - Last Filed: 04/14/24 10:23> Procedures Date of Service Date of Service: 04/14/24 <Milagro Putnam PA-C - Last Filed: 04/14/24 10:23> 04/14/24 <Floyd Valle MD - Last Filed: 04/14/24 10:23>
--- NOTE | 2024-04-14 12:23 | PM.EVENT ---
Event Note Date of Service: 04/15/24 Event Note: Seen on follow-up in the ED She continues to feel better Less pain and tenderness She looks well Abdomen is soft, very benign, without any guarding or rebound Very minimal tenderness to deep palpation the deep pelvis Regular diet Okay to DC home if she does well with the regular diet I have instructed her to make sure she establish a relationship with a primary care physician for further workup Her mother was with her during the discussion and they are comfortable with the plan Time Spent With Patient Time: Total time managing care of this patient today ____ minutes.
--- NOTE | 2024-04-14 12:39 | MHC.CM.PN ---
PT IS INDEPENDENT ,WORKING HAS NO SERVICES HAS OWN RIDE HOME IS BEING DCD HOME SELF CARE
[2024-04-14 14:07] VITALS: BP 107/62; PULSE 98; RESP 18; TEMP 36.8; O2SAT 100
[2024-04-15 12:53] LABS: Transferrin 309 mg/dL (188-341)
--- NOTE | 2024-04-16 09:37 | PM.DS ---
DS: Providers Provider Date of Service: 04/16/24 Date of admission: 04/14/24 01:12 Primary care physician: None Physician Consults: 04/14/24 01:16 Consult to Hospitalist Routine Comment: Consulting Provider: [facility] [place] [facility] Reason For Exam: syncope abdo pain DS: Diagnosis Discharge Diagnosis (1) Abdominal pain: Status: Acute (2) Vasovagal syncopes: Status: Acute DS: Summary Hospital Course Hospital Course: 23 year old female with no known PMH who presented to the ED with complaints of pelvic pain, syncopal episodes. She reports she was in her usual state of health until yesterday morning. She reports she used the bathroom at school and developed right lower abd pain/pelvic pain. She then felt dizzy and woke up on the floor. Work up in the ED included CBC, BMP, LFTs, troponin, UA which was significant for a leukocytosis of 20.1. CT scan abd/pelvis was obtained which showed left adnexal cyst. Appendix was not visualized, no fluid collections or significant surrounding inflammatory changes in the RLQ on my review. Pelvic US confirmed ovoid unilocular cyst within the left ovary, no evidence of ovarian torsion. Serum negative. Overall clinical findings were not suggestive of acute appendicitis. She was therefore started on clear liquids and this was advanced. She continued to tolerate this. She had good improvement of her pain. Her abdominal exam remained benign. She was started on regular diet that same day which she tolerated. [place] much better and was discharged that day. Likely etiology therefore would have been her ovarian cyst. Time Attestation Discharge Coordination Time (in mins): 30 min Quality: Safe Use of Opioids Does Pt have an Active Cancer Diagnosis on the Problem List?: No Quality: Stroke Does the patient have a stroke diagnosis?: No Physical Exam Vital Signs: Vital Signs: Last Vital Signs Temp 98.3 F 04/14/24 14:07 Pulse 98 04/14/24 14:07 Resp 18 04/14/24 14:07 BP 107/62 04/14/24 14:07 Pulse Ox 100 04/14/24 14:07 O2 Del Method Room Air 04/14/24 14:07 BMI result Body Mass Index 27.5 Const: General: comfortable and no acute distress Orientation/consciousness: patient oriented x3 Neck: Neck: Yes no lymphadenopathy Resp: Auscultation: clear to auscultation bilaterally Cardio: Rhythm: regular rhythm GI: Palpation (GI): Soft to palpation, nontender and no guarding Neuro: General: patient oriented x3 DS: Data Data Completed and Pending Labs on day of discharge: Laboratory Results - last 24 hr 04/14/24 08:43 Transferrin 309 Preliminary micro results at discharge 04/13/24 20:05 Blood Culture - Preliminary Blood - Venous No growth after 48 hours. 04/13/24 19:44 Blood Culture - Preliminary Blood - Venous No growth after 48 hours. Laboratory Results WBC 15.5 X10*3/uL (4.8-10.8) H 04/14/24 04:31 RBC 4.34 X10*6/uL (4.20-5.50) 04/14/24 04:31 Hgb 8.9 g/dl (12.0-16.0) L 04/14/24 04:31 Hct 29.2 % (37.0-47.0) L 04/14/24 04:31 MCV 67.3 fL (80.0-98.0) L 04/14/24 04:31 MCH 20.5 pg (27.0-33.0) L 04/14/24 04:31 MCHC 30.5 g/dl (31.0-35.0) L 04/14/24 04:31 RDW 16.7 % (11.0-16.0) H 04/14/24 04:31 Plt Count 364 X10*3/uL (160-400) 04/14/24 04:31 MPV 10.1 fL (9.4-12.3) 04/14/24 04:31 Immature Gran % (Auto) 0.3 % (0.0-0.4) 04/14/24 04:31 Neut % (Auto) 70.6 % (45-73) 04/14/24 04:31 Lymph % (Auto) 21.1 % (20-40) 04/14/24 04:31 [place] % (Auto) 5.4 % (2-11) 04/14/24 04:31 Eos % (Auto) 2.3 % (0-4) 04/14/24 04:31 Baso % (Auto) 0.3 % (0-2) 04/14/24 04:31 Lymph # (Auto) 3.3 X10*3/uL (1.2-4.9) 04/14/24 04:31 [place] # (Auto) 0.8 X10*3/uL (0.1-1.2) 04/14/24 04:31 Eos # (Auto) 0.4 X10*3/uL (0.0-0.4) 04/14/24 04:31 Baso # (Auto) 0.1 X10*3/uL (0.0-0.2) 04/14/24 04:31 Abs Immat Gran (auto) 0.05 X10*3/uL (0.00-0.03) H 04/14/24 04:31 Absolute Neuts (auto) 11.0 x10*3/uL (2.0-8.3) H 04/14/24 04:31 Absolute Nucleated RBC 0.000 X10*3/uL (0.0-0.012) 04/14/24 04:31 Nucleated RBC % (auto) 0.0 /100WBC (0.0-0.2) 04/14/24 04:31 Absolute Retic 0.051 X10*6/uL (0.026-0.095) 04/14/24 04:31 Percent Retic 1.2 % (0.5-1.8) 04/14/24 04:31 Immature Retic Fraction 17.2 % (3.0-15.9) H 04/14/24 04:31 Retic Hgb Equivalent 22.0 pg (30.0-35.0) L 04/14/24 04:31 PT 14.3 SEC (10.9-12.4) H 04/13/24 17:27 INR 1.2 (0.9-1.1) H 04/13/24 17:27 Sodium 138 mmol/L (135-145) 04/14/24 04:31 Potassium 3.9 mmol/L (3.3-5.1) 04/14/24 04:31 Chloride 110 mmol/L (96-108) H 04/14/24 04:31 Carbon Dioxide 20 mmol/L (22-29) L 04/14/24 04:31 Anion Gap 12 (12-20) 04/14/24 04:31 BUN 9 mg/dL (9-16) 04/14/24 04:31 Creatinine 0.70 mg/dL (0.5-1.4) 04/14/24 04:31 Estim Creat Clear Calc 124.1 04/14/24 04:31 Estimated GFR > 60 04/14/24 04:31 Random Glucose 89 mg/dL (60-115) 04/14/24 04:31 Lactic Acid 0.9 mmol/L (0.5-2.0) 04/13/24 19:44 Calcium 8.8 mg/dL (8.4-10.2) 04/14/24 04:31 Magnesium 2.0 mg/dL (1.6-2.6) 04/13/24 17:27 Iron 40 mcg/dL (30-160) 04/14/24 04:31 TIBC 325 mcg/dL (228-428) 04/14/24 04:31 % Saturation 12 % (15-50) L 04/14/24 04:31 Unsat Iron Binding 285 ug/dL 04/14/24 04:31 Transferrin 309 mg/dL (188-341) 04/14/24 08:43 Ferritin 13 ng/mL (10-122) 04/14/24 04:31 Total Bilirubin 0.6 mg/dL (0.0-1.0) 04/13/24 17:27 Direct Bilirubin 0.2 mg/dL (0.0-0.5) 04/13/24 17:27 AST 25 U/L (5-31) 04/13/24 17:27 ALT 17 U/L (0-31) 04/13/24 17:27 Alkaline Phosphatase 92 U/L (39-117) 04/13/24 17:27 Troponin I High Sens < 2.7 ng/L (<3.5-17.0) 04/13/24 17:27 Total Protein 8.2 g/dL (6.5-8.0) H 04/13/24 17:27 Albumin 4.3 g/dL (3.5-5.0) 04/13/24 17:27 Lipase 21 U/L (8-78) 04/13/24 17:27 Vitamin B12 479 pg/mL (200-900) 04/14/24 08:43 Folate 8.3 ng/mL (> or = 4.0) 04/14/24 08:43 Beta HCG, Quant < 2 mIU/mL 04/13/24 17:27 Urine Color Yellow 04/13/24 17:40 Urine Appearance Clear 04/13/24 17:40 Urine pH 6.5 (5.0-9.0) 04/13/24 17:40 Ur Specific Boring 1.020 (1.005-1.025) 04/13/24 17:40 Urine Protein Negative mg/dL (Neg-Trace) 04/13/24 17:40 Urine Glucose (UA) Negative mg/dL (Negative) 04/13/24 17:40 Urine Ketones 15 mg/dL (Negative) 04/13/24 17:40 Urine Blood Negative (Negative) 04/13/24 17:40 Urine Nitrite Negative (Negative) 04/13/24 17:40 Ur Leukocyte Esterase Negative (Negative) 04/13/24 17:40 Influenza Type A (PCR) NEGATIVE (Negative) 04/13/24 17: Influenza Type B (PCR) NEGATIVE (Negative) 04/13/24 17: RSV RNA Qual (PCR) NEGATIVE (Negative) 04/13/24 17:27 SARS-CoV-2 RNA (RT-PCR) NEGATIVE (Negative) 04/13/24 17:27 Impressions Chest X-Ray 04/13/24 20:00 IMPRESSION: No acute cardiopulmonary findings. Electronically signed by: Alexandru Livingston MD 04/13/2024 08:59 PM [facility] RP Abdomen/Pelvis CT 04/13/24 20:57 IMPRESSION: 1. The appendix is nonvisualized. Subtle stranding and trace fluid in the right lower quadrant mesentery adjacent to the cecum. Appendicitis cannot be excluded. There is no abscess. 2. 1.1 cm hypodense lesion posterior right lobe of liver, segment 7. In a patient of this age without history of malignancy no further follow-up imaging would be recommended. 3. Left adnexal cystic lesion measuring 4 cm. Findings are overwhelmingly likely to represent a benign functional cyst. No followup imaging recommended. Fleischner guidelines were followed. Electronically signed by: Skyler Vallejo MD 04/13/2024 10:46 PM EST RP Pelvis Ultrasound 04/14/24 01:50 IMPRESSION: *Single 4.0 cm x 3.3 cm x 4.2 cm ovoid unilocular cyst within the left ovary. Findings are overwhelmingly likely to represent a benign functional cyst. No followup imaging recommended. The left ovary is otherwise normal in appearance. The left ovary demonstrates a normal low resistive venous waveform. No evidence of left ovarian torsion. *Normal appearance of the uterus and right ovary. Electronically signed by: French Saini MD 04/14/2024 03:20 AM [facility] Discharge Plan Discharge Anticipated Discharge Date/Time: 04/14/24 12:24 Patient Disposition: Home, Self-Care Discharge Diagnosis: pelvic pain Referrals: Physician,None [Primary Care Provider] - 1 Week Discharge Medications: No Action No Known Home Meds Discharge Orders: Discharge Order (Routine); Ordered 04/14/24 Ordered By: Floyd Valle Diet: Advance to usual diet Activity on Discharge: As tolerated Stand Alone Forms: Patient Portal Discharge page, Work/School Release Print Language: Icelandic Activity Restrictions/Additional Instructions: Return to ER if you have recurrence of symptoms Care Plan Goals: Returned to baseline Health Concerns: Pelvic pain Plan of Treatment: Needs to establish a relationship with a primary care physician Assessment: Doing well Discharge Date/Time: 04/14/24 14:05
== END 2024-04-14 14:05 | disposition home or self-care (01) | DRG 204 ==
LOC: HO.ED 20:43 → HO.EDOVER 04-14 01:18
PROVIDERS: Internal Medicine; Physician Assistant Medical; Admitting Provider Surgery; Emergency Provider Internal Medicine; Visit Provider Surgery
DX: R55 Syncope and collapse (principal); D50.9 Iron deficiency anemia, unspecified; R10.9 Unspecified abdominal pain; N83.291 Other ovarian cyst, right side; Z20.822 Contact with and (suspected) exposure to COVID-19
CPT/HCPCS: 0241U; 36415; 71046; 74177; 76856; 80048; 80076; 81003; 82607; 82728; 82746; 83540; 83605; 83690; 83735; 84466; 84484; 84702; 85025; 85045; 85610; 87040; 93005; 99221; 99285; J2543; J7120; Q9967

== ENCOUNTER → 2024-04-13 16:54 | Outpatient (BNV) | payer OTHER, SELFPAY | PROVIDERS: Admitting Provider Surgery; Emergency Provider Internal Medicine; Visit Provider Internal Medicine Cardiovascular Disease | DX: R00.0 Tachycardia, unspecified (principal) | CPT/HCPCS: 93010 ==

== ENCOUNTER → 2024-04-14 01:12 | Outpatient (BNV) | payer OTHER, SELFPAY | PROVIDERS: Admitting Provider Surgery; Emergency Provider Internal Medicine; Visit Provider Internal Medicine | DX: R55 Syncope and collapse (principal); R10.31 Right lower quadrant pain | CPT/HCPCS: 99222 ==

== ENCOUNTER → 2024-04-14 01:12 | Outpatient (BNV) | payer OTHER, SELFPAY | PROVIDERS: Admitting Provider Surgery; Emergency Provider Internal Medicine; Visit Provider Physician Assistant Surgical | DX: R10.31 Right lower quadrant pain (principal); R55 Syncope and collapse | CPT/HCPCS: 99222; 99499 ==